=== PATIENT | female | born 1940 | race African-American/Black ===

== ENCOUNTER → 2017-10-20 | Day surgery (SDC) | payer MEDICARE ==
[~2017-10-20] MED LIST: AMLODIPINE BESY10 MG; AMLODIPINE BESY10 MG PO; ASPIR 8181 MG PO; ASPIRIN81 M1; ATENOLOL50 MG PO; BOTULINUM TOXIN TYPE A 100 UNIT VIAL IM ONE; CLOPIDOGREL75 MG PO; COUMADIN2.5 MG PO; COUMADIN3 MG PO; COUMADIN5 MG PO; CRESTOR10 MG PO; FENTANYL CITRATE/PF 100MCG/2 ML INJ ONE; HYDRALAZINE HCL25 MG PO; HYDRALAZINE HCL50 MG; LIDOCAINE HCL 2% LOCAL INJ 5 ML SDV VIAL INJ ONE; LINZESS PO; LISINOPRIL10 MG PO; LOSARTAN POTAS100 MG PO; LOSARTAN POTASS50 MG; METOPROLOL TART50 MG; METOPROLOL TART50 MG PO; NITROGLYCERIN0.4 MG SL; NITROSTAT0.4 MG; OMEPRAZOLE40 MG; OMEPRAZOLE40 MG PO; PLAVIX75 MG PO; PRAVASTATIN SOD40 MG; PRAVASTATIN SOD40 MG PO; PROPOFOL IV EMULSION 10 MG/ML 20 ML VIAL ONE; RENAGEL800 MG; RENVELA800 MG; SENSIPAR60 MG PO; SENSIPAR90 MG; SODIUM CHLORIDE 0.9% 500ML 500 ML ONE; TUMS200 MG PO; WELCHOL625 MG
[2017-10-20 09:47] LABS: BASOPHILS % 0.7 % (0.0-1.0); EOSINOPHILS # (AUTO) 0.1 (0.0-0.4); EOSINOPHILS % 0.9 % (0.0-6.0); HEMATOCRIT 32.6 % (34.2-44.1); HEMOGLOBIN 10.4 g/dL (12.0-16.0); LYMPHOCYTES # (AUTO) 0.9 (1.0-3.2); LYMPHOCYTES % 15.9 % (18.0-39.1); MEAN CORPUSCULAR HEMOGLOBIN 29.5 pg (28-32); MEAN CORPUSCULAR HGB CONC 31.9 g/dL (31-35); MEAN CORPUSCULAR VOLUME 92.6 fL (81-99); MONOCYTES % 17.6 % (4.4-11.3); NEUTROPHILS # (AUTO) 3.6 (2.1-6.9); NEUTROPHILS % 64.5 % (38.7-80.0); PLATELET COUNT 191 x10e3/uL (140-360); RED BLOOD COUNT 3.52 x10e6/uL (3.6-5.1); RED CELL DISTRIBUTION WIDTH 15.7 % (11.7-14.4)
[2017-10-20 10:01] LABS: CALCIUM 9.7 mg/dL (8.4-10.2); CREATININE, SERUM 6.28 mg/dL (0.57-1.11)
[2017-10-20 10:37] LABS: INR 1.06; PROTHROMBIN TIME 14.3 seconds (11.9-14.5)
== END | disposition home or self-care (01) ==
LOC: OR 09:04
PROVIDERS: ATTEND Internal Medicine Gastroenterology
DX: D64.9 Anemia, unspecified (principal); D12.2 Benign neoplasm of ascending colon; D12.3 Benign neoplasm of transverse colon; K29.70 Gastritis, unspecified, without bleeding; K22.10 Ulcer of esophagus without bleeding; K31.84 Gastroparesis; K21.9 Gastro-esophageal reflux disease without esophagitis; K44.9 Diaphragmatic hernia without obstruction or gangrene; K57.30 Diverticulosis of large intestine without perforation or abscess without bleeding; K58.9 Irritable bowel syndrome, unspecified; K64.8 Other hemorrhoids; M32.9 Systemic lupus erythematosus, unspecified; E73.9 Lactose intolerance, unspecified; I25.810 Atherosclerosis of coronary artery bypass graft(s) without angina pectoris; I48.91 Unspecified atrial fibrillation; I12.0 Hypertensive chronic kidney disease with stage 5 chronic kidney disease or end stage renal disease; N18.6 End stage renal disease; E78.5 Hyperlipidemia, unspecified; M19.90 Unspecified osteoarthritis, unspecified site; Z01.810 Encounter for preprocedural cardiovascular examination; Z79.01 Long term (current) use of anticoagulants; Z99.2 Dependence on renal dialysis; Z95.1 Presence of aortocoronary bypass graft; Z87.01 Personal history of pneumonia (recurrent)
CPT/HCPCS: 36415; 43236; 43239; 45380; 45385; 80048; 85025; 85610; 85730; 88305; 88312; 93005; J0587; J2001; J7040; 45384

== ENCOUNTER → 2018-03-29 | Outpatient (CLI) | payer MEDICARE ==
[~2018-03-29] MED LIST changes: -BOTULINUM TOXIN TYPE A 100 UNIT VIAL IM ONE; -FENTANYL CITRATE/PF 100MCG/2 ML INJ ONE; -LIDOCAINE HCL 2% LOCAL INJ 5 ML SDV VIAL INJ ONE; -PROPOFOL IV EMULSION 10 MG/ML 20 ML VIAL ONE; -SODIUM CHLORIDE 0.9% 500ML 500 ML ONE
--- NOTE | 2018-03-29 12:51 | Diagnostic Imaging Report ---
Examination: MRI of the Lumbar Spine without Contrast History: Back pain and right leg pain Comparison studies: None Technique: Sagittal T1, T2 and IR, axial T2 with and without fat sat and axial spin density oblique Intravenous contrast: None Findings: Images are degraded by patient motion. Number of lumbar vertebral bodies: 5 . Alignment: Mild rightward curvature of the thoracolumbar spine centered at T12-L1. Soft tissues: Multiple small T2 hyperintense renal cysts bilaterally. Small right pleural effusion. Paraspinal muscles: No signal abnormalities. Well-preserved. No atrophic changes . Lower thoracic cord: Normal in size and signal. The tip of the conus is at T12-L1. Cauda equina:No masses. No arachnoiditis . Vertebrae: Mild diffuse heterogeneity of the bone marrow. Large Schmorl's nodes are seen at the superior L1 and superior and inferior L2 vertebral bodies. No fractures, infection or neoplasm. Degenerative changes: L1-L2 No abnormalities. L2-L3: No abnormalities. L3-L4: Mild diffuse bulge and mild bilateral facet arthropathy result in mild bilateral neural foraminal narrowing. No canal stenosis. L4-L5: Diffuse disc bulge and moderate bilateral facet arthropathy result in moderate right and mild left foraminal stenosis. No canal stenosis. L5-S1: Asymmetric to the right disc bulge and severe right and mild left facet arthropathy result in mild canal stenosis and severe right and moderate left foraminal stenosis with impingement of the right L5 nerve root. Partially visualized sacrum: No abnormalities. IMPRESSION: Limited exam due to patient motion. 1. Degenerative changes L3-L4 through L5-S1 with mild canal stenosis and severe right and moderate left degenerative foraminal stenosis at L5-S1, with impingement of the right L5 nerve root. 2. Mild rightward curvature of the thoracolumbar spine centered at T12-L1, with degenerative changes related to curvature. 3. Large Schmorl's nodes at the L1 and L2 vertebral bodies. This preliminary report was completed by the neuroradiology fellow Dr. Chauncey Bush. The images and preliminary report were reviewed and signed by Dr. Angie Baer, neuroradiology faculty, on 03/29/2018 at 2146 hours. Signed by: Dr. Angie Baer M.D. on 03/29/2018 9:46 PM
== END | disposition home or self-care (01) ==
LOC: MRI 09:26
PROVIDERS: ATTEND Specialist
DX: M47.816 Spondylosis without myelopathy or radiculopathy, lumbar region (principal); M47.897 Other spondylosis, lumbosacral region; M48.05 Spinal stenosis, thoracolumbar region
CPT/HCPCS: 72148

== ENCOUNTER → 2018-09-08 | Outpatient (CLI) | payer MEDICARE ==
--- NOTE | 2018-09-08 09:23 | Diagnostic Imaging Report ---
PROCEDURE: Frontal and lateral views of the chest. COMPARISON: Patients [facility], , CHEST 2 VIEWS, 02/07/2016, 11:41. INDICATIONS: COUGH, FEVER FINDINGS: Lines/tubes: None. Lungs: The lungs are well inflated and clear. No evidence of lobar consolidation. Mild interstitial opacities most pronounced in the upper lung zones. Mild patchy bibasilar opacities. Pleura: There is no pleural effusion or pneumothorax. Heart and mediastinum: The cardiomediastinal silhouette is unchanged. Prominence of the bilateral madisyn. Status post CABG. Bones: No acute bony abnormality. Status post median sternotomy. IMPRESSION: Upper lobe predominant interstitial opacities could reflect interstitial edema, although infection can have a similar appearance. Follow-up chest radiograph is suggested. Patchy bibasilar opacities, likely atelectasis. Prominence of the bilateral madisyn, suggestive of pulmonary arterial hypertension. Dictated by: BRIA DUBON M.D. on 09/08/2018 at 9:33 Electronically approved by: BRIA DUBON M.D. on 09/08/2018 at 9:33
== END ==
LOC: RAD 08:47
PROVIDERS: ATTEND Family Medicine
DX: R05 Cough (principal)
CPT/HCPCS: 71046

== ENCOUNTER 2020-04-05 15:13 | Inpatient (IN) | payer MEDICARE, OTHER ==
[~2020-04-05] VITALS: Ht 167.6 cm; Wt 54.4 kg
[2020-04-05] MEDS ORDERED: HYDROCODONE/APAP 5MG-325MG TAB PO ONE (16:00)
--- NOTE | 2020-04-05 16:06 | Emergency Department Note ---
History of Present Illnes History of Present Illness Chief Complaint: COVID PUI History of Present Illness This is a 79 year old female HERE FOR PROGRESSIVE SHORTNESS OF BREATH, COUGH, AND FEVER, ACHY ALL OVER. STATES IS IN [facility] SINCE WEDNESDAY MORNING. Historian: Patient Arrival Mode: Car Molded Goods Controls Operator Required: No Onset (how long ago): day(s) (2) Radiation: Reports non-radiation Severity: moderate Onset quality: gradual Timing of current episode: constant Progression: waxing and waning Chronicity: new Context: Reports recent illness Relieving factors: none Exacerbating factors: none Associated symptoms: Reports denies other symptoms Treatments prior to arrival: none Past Medical/Family History Physician Review I have reviewed the patient's past medical and family history. Any updates have been documented here. Past Medical History Recent Fever: Yes Clinical Suspicion of Infectio: Yes New/Unexplained Change in Ment: No Past Medical History: Hypertension, CHF, Chronic Kidney Disease Other Medical History: WATCHMAN Other Surgery: CERVICAL, CLIFTON CATARACTS WATCHMAN Social History Smoking Cessation: Never Smoker Counseling Performed: No Alcohol Use: None Any Illegal Drug Use: No TB Exposure/Symptoms: No Physically hurt or threatened: No Family History Family history of heart diseas: No Other Last Tetanus: UNK Review of Systems Review of Systems Constitutional: Reports as per HPI, Reports chills, Reports fever, Reports malaise, Reports weakness EENTM: Reports no symptoms Cardiovascular: Reports no symptoms Respiratory: Reports as per HPI, Reports cough, Reports dyspnea Gastrointestinal: Reports no symptoms Genitourinary: Reports no symptoms Musculoskeletal: Reports no symptoms Integumentary: Reports no symptoms Neurological: Reports no symptoms Psychological: Reports no symptoms Endocrine: Reports no symptoms Hematological/Lymphatic: Reports no symptoms Physical Exam Related Data Allergies: Coded Allergies: Penicillins (Verified Allergy, Severe, RASH, 11/14/12) Sulfa (Sulfonamide Antibiotics) (Verified Allergy, Severe, RASH, 11/14/12) iodine (Verified Allergy, Severe, RASH, 11/14/12) red dye (Verified Allergy, RASH, 10/20/15) Uncoded Allergies: RED DYES AND RED FOODS (Allergy, Severe, RASH, 11/14/12) Triage Vital Signs Vital Signs Date Time Temp Pulse Resp B/P (MAP) Pulse Ox O2 Delivery O2 Flow Rate FiO2 04/05/20 15:40 98.3 76 24 117/89 97 Vital signs reviewed: Yes Physical Exam CONSTITUTIONAL Constitutional: Present well-developed, Present well-nourished HENT HENT: Present normocephalic, Present atraumatic, Present oropharynx cl ear/moist, Present nose normal HENT L/R: Present left ext ear normal, Present right ext ear normal EYES Eyes: Reports PERRL, Reports conjunctivae normal NECK Neck: Present ROM normal PULMONARY Pulmonary: Present effort normal, Present other (MILD DECR BS'S THROUGHOUT); Absent rales, Absent rhonchi CARDIOVASCULAR Cardiovascular: Present regular rhythm, Present heart sounds normal, Present capillary refill normal, Present normal rate GASTROINTESTINAL Abdominal: Present soft, Present nontender, Present bowel sounds normal GENITOURINARY Genitourinary: Present exam deferred SKIN Skin: Present warm, Present dry MUSCULOSKELETAL Musculoskeletal: Present ROM normal NEUROLOGICAL Neurological: Present alert, Present oriented x 3, Present no gross motor or sensory deficits PSYCHOLOGICAL Psychological: Present mood/affect normal, Present judgement normal Assessment & Plan Medical Decision Making MDM PT SCHEDULED TO GET HD TOMORROW, LIKELY COVID, IN HOSPITAL WITH COVID - O2 SAT NORMAL LUNGS UNREMARKABLE NO RALES - WILL DO COVID SWAB, DC HOME F/U PCP, F/U HD TOMORROW SCHEDULED Reassessment Reassessment DC HOME, F/U HD TOMORROW Assessment & Plan Final Impression: (1) Viral syndrome Depart Disposition: HOME, SELF-CARE Last Vital Signs Date Time Temp Pulse Resp B/P (MAP) Pulse Ox O2 Delivery O2 Flow Rate FiO2 04/05/20 15:40 98.3 76 24 117/89 97 Home Meds Reported Medications Warfarin Sodium* (COUMADIN*) 3 Mg Tablet, 3 MG PO DAILY, #7 TAB 10/23/15 [Linzess] No Conflict Check, 290 MCG PO DAILY PRN for CONSTIPATION TAKE EVERY OTHER DAY NOT DAILY 10/20/15 Cinacalcet Hcl (SENSIPAR) 60 Mg Tablet, 60 MG PO 10/15/15 Metoprolol Tartrate (METOPROLOL TARTRATE) 50 Mg Tablet, 50 MG PO BID, TAB 10/15/15 Amlodipine Besylate (AMLODIPINE BESYLATE) 10 Mg Tablet, 10 MG PO BID, #30 TAB 10/15/15 Losartan Potassium (LOSARTAN POTASSIUM) 100 Mg Tablet, 100 MG PO DAILY, TAB 10/15/15 Hydralazine Hcl (HYDRALAZINE HCL) 25 Mg Tab, 50 MG PO QID, TAB 10/15/15 Omeprazole (OMEPRAZOLE) 40 Mg Capsule.dr, 40 MG PO BID 10/15/15 Pravastatin Sodium (PRAVASTATIN SODIUM) 40 Mg Tablet, 40 MG PO HS 10/15/15 Warfarin Sodium (COUMADIN) 5 Mg Tablet, 5 MG PO 1700, #7 TAB 3 DAYS 10/10/15 Warfarin Sodium (COUMADIN) 2.5 Mg Tablet, 2.5 MG PO 1700, #7 TAB 4 DAYS 10/10/15 Nitroglycerin (NITROSTAT) 0.4 Mg Tab.subl, 0.4 MG PRN ONLY ON HAND FOR EMERGENCY/PT. HAS NOT NEEDED TO TAKE THIS MED. 11/21/12 Medications in the ED Acetaminophen/ Hydrocodone Bitart 1 ea ONCE ONCE PO ; Start 04/05/20 at 16:00; Stop 04/05/20 at 16:01; Status UNDARSHAN ERICKSON MD Apr 05, 2020 16:06
[2020-04-05] MEDS ORDERED: CEFTRIAXONE SOD 1 GM/NS 50 ML 50 ML IV ONE (17:30)
--- NOTE | 2020-04-05 17:40 | NUR ---
Lab called to inform that patient's blood work hemolyzed, advised them to send a morning news producer to recollect.
[2020-04-05] MEDS ORDERED: ONDANSETRON HCL INJ 2MG/ML 2ML 2 MG/ML VIAL IV STA (17:43)
[2020-04-05] MEDS ORDERED: AZITHROMYCIN 500MG/NS 250 ML 250 ML IV ONE (18:00)
[2020-04-05 18:25] LABS: BASOPHILS % 0.3 % (0.0-1.0); EOSINOPHILS % 0.5 % (0.0-6.0); HEMATOCRIT 35.5 % (34.2-44.1); LYMPHOCYTES # (AUTO) 0.4 (1.0-3.2); LYMPHOCYTES % 7.1 % (18.0-39.1); MEAN CORPUSCULAR VOLUME 87.2 fL (81-99); MONOCYTES # (AUTO) 0.2 (0.2-0.8); MONOCYTES % 2.7 % (4.4-11.3); NEUTROPHILS # (AUTO) 5.3 (2.1-6.9); NEUTROPHILS % 87.9 % (38.7-80.0); PLATELET COUNT 104 x10e3/uL (140-360); RED BLOOD COUNT 4.07 x10e6/uL (3.6-5.1); RED CELL DISTRIBUTION WIDTH 15.6 % (11.7-14.4)
[2020-04-05 18:33] LABS: INR 1.15; PROTHROMBIN TIME 15.4 seconds (11.9-14.5)
[2020-04-05 18:34] LABS: PARTIAL THROMBOPLASTIN TIME 49.6 seconds (23.8-35.5)
--- NOTE | 2020-04-05 18:39 | Emergency Department Note ---
History of Present Illnes History of Present Illness Chief Complaint: COVID PUI History of Present Illness This is a 79 year old female . Historian: Patient Arrival Mode: Car Environmental Engineer Scientist Required: No Onset (how long ago): day(s) (2) Radiation: Reports non-radiation Severity: moderate Onset quality: gradual Timing of current episode: constant Progression: waxing and waning Chronicity: new Context: Reports recent illness Relieving factors: none Exacerbating factors: none Associated symptoms: Reports denies other symptoms Treatments prior to arrival: none (DARSHAN GONZALEZ MD) Past Medical/Family History Physician Review I have reviewed the patient's past medical and family history. Any updates have been documented here. (DARSHAN GONZALEZ MD) Past Medical History Recent Fever: Yes Clinical Suspicion of Infectio: Yes New/Unexplained Change in Ment: No Past Medical History: Hypertension, CHF, Chronic Kidney Disease, Lupus Other Medical History: WATCHMAN Past Surgical History: CABG Other Surgery: CERVICAL, CLIFTON CATARACTS WATCHMAN (DARSHAN GONZALEZ MD) Social History Smoking Cessation: Never Smoker Counseling Performed: No Alcohol Use: None Any Illegal Drug Use: No TB Exposure/Symptoms: No Physically hurt or threatened: No (DARSHAN GONZALEZ MD) Family History Family history of heart diseas: No (DARSHAN GONZALEZ MD) Other Last Tetanus: UNK Any Pre-Existing Lines (PICC,: Yes (DIAYLSIS FISTULA ) Is patient up to date on immun: Yes Last Flu: UTD Last Pneumovax: UTD (DARSHAN GONZALEZ MD) Review of Systems Review of Systems Constitutional: Reports as per HPI, Reports chills, Reports fever, Reports malaise, Reports weakness EENTM: Reports no symptoms Cardiovascular: Reports no symptoms Respiratory: Reports as per HPI, Reports cough, Reports dyspnea Gastrointestinal: Reports no symptoms Genitourinary: Reports no symptoms Musculoskeletal: Reports no symptoms Integumentary: Reports no symptoms Neurological: Reports no symptoms Psychological: Reports no symptoms Endocrine: Reports no symptoms Hematological/Lymphatic: Reports no symptoms (DARSHAN GONZALEZ MD) Physical Exam Related Data Allergies: Coded Allergies: Penicillins (Verified Allergy, Severe, RASH, 11/14/12) Sulfa (Sulfonamide Antibiotics) (Verified Allergy, Severe, RASH, 11/14/12) iodine (Verified Allergy, Severe, RASH, 11/14/12) red dye (Verified Allergy, Unknown, RASH, 04/05/20) Uncoded Allergies: RED DYES AND RED FOODS (Allergy, Severe, RASH, 11/14/12) Triage Vital Signs Vital Signs Date Time Temp Pulse Resp B/P (MAP) Pulse Ox O2 Delivery O2 Flow Rate FiO2 04/05/20 15:40 98.3 76 24 117/89 97 Vital signs reviewed: Yes (DARSHAN GONZALEZ MD) Physical Exam CONSTITUTIONAL Constitutional: Present well-developed, Present well-nourished HENT HENT: Present normocephalic, Present atraumatic, Present oropharynx clear/moist, Present nose normal HENT L/R: Present left ext ear normal, Present right ext ear normal EYES Eyes: Reports PERRL, Reports conjunctivae normal NECK Neck: Present ROM normal PULMONARY Pulmonary: Present effort normal, Present other (MILD DECR BS'S THROUGHOUT); Absent rales, Absent rhonchi CARDIOVASCULAR Cardiovascular: Present regular rhythm, Present heart sounds normal, Present capillary refill normal, Present normal rate GASTROINTESTINAL Abdominal: Present soft, Present nontender, Present bowel sounds normal GENITOURINARY Genitourinary: Present exam deferred SKIN Skin: Present warm, Present dry MUSCULOSKELETAL Musculoskeletal: Present ROM normal NEUROLOGICAL Neurological: Present alert, Present oriented x 3, Present no gross motor or sensory deficits PSYCHOLOGICAL Psychological: Present mood/affect normal, Present judgement normal (DARSHAN GONZALEZ MD) Results Laboratory Result Diagram: 04/05/20 1813 Laboratory Laboratory Tests Test 04/05/20 18:13 04/05/20 16:05 White Blood Count 6.02 x10e3/uL (4.8-10.8) Red Blood Count 4.07 x10e6/uL (3.6-5.1) Hemoglobin 11.0 g/dL (12.0-16.0) Hematocrit 35.5 % (34.2-44.1) Mean Corpuscular Volume 87.2 fL (81-99) Mean Corpuscular Hemoglobin 27.0 pg (28-32) Mean Corpuscular Hemoglobin Concent 31.0 g/dL (31-35) Red Cell Distribution Width 15.6 % (11.7-14.4) Platelet Count 104 x10e3/uL (140-360) Neutrophils (%) (Auto) 87.9 % (38.7-80.0) Lymphocytes (%) (Auto) 7.1 % (18.0-39.1) Monocytes (%) (Auto) 2.7 % (4.4-11.3) Eosinophils (%) (Auto) 0.5 % (0.0-6.0) Basophils (%) (Auto) 0.3 % (0.0-1.0) Neutrophils # (Auto) 5.3 (2.1-6.9) Lymphocytes # (Auto) 0.4 (1.0-3.2) Monocytes # (Auto) 0.2 (0.2-0.8) Eosinophils # (Auto) 0.0 (0.0-0.4) Basophils # (Auto) 0.0 (0.0-0.1) Absolute Immature Granulocyte (auto 0.09 x10e3/uL (0-0.1) Lab results reviewed: Yes (DARSHAN GONZALEZ MD) Lab results reviewed: Yes (ALDO MAURO DO) Imaging Imaging results reviewed: Yes (DARSHAN GONZALEZ MD) Imaging results reviewed: Yes (ALDO MAURO DO) Procedures 12 Lead ECG Interpretation ECG Interpretation : ECG: ECG 1 Environmental Engineer Scientist: Interpreted by ED physician Date: Apr 05, 2020 Time: 17:12 Rhythm: atrial fibrillation QRS axis: left ST segments normal: Yes T waves normal: Yes Clinical Impression: abnormal ECG (DARSHAN GONZALEZ MD) Assessment & Plan Medical Decision Making MDM check CBC, CHEM'S, ECG, CARDIAC ENZYMES, BNP, BLOOD CX'S, CXR, COVID SWAB - R/O STEMI/NSTEMI, PNEUMONIA, COVID19, ELECTROLYTE ABNL, HYPERKALEMIA, VOLUME OVERLOAD, CHF (DARSHAN GONZALEZ MD) Reassessment Reassessment SPOKE WITH DR NGUYỄN FOR ADMISSION, DR BELL, DR CALIXTO GROUP FOR HD (DARSHAN GONZALEZ MD) Assessment & Plan Final Impression: (1) Pneumonia (2) Atrial fibrillation (3) ESRD (end stage renal disease) (4) Viral syndrome (5) Thrombocytopenia (DARSHAN GONZALEZ MD) Final Impression: (1) Viral syndrome (2) Thrombocytopenia (3) Atrial fibrillation (4) ESRD (end stage renal disease) (5) Pneumonia (6) COVID-19 virus detected (ALDO MAURO DO) Depart Disposition: ADMITTED Last Vital Signs Date Time Temp Pulse Resp B/P (MAP) Pulse Ox O2 Delivery O2 Flow Rate FiO2 04/05/20 17:24 81 24 121/61 100 04/05/20 15:40 98.3 (DARSHAN GONZALEZ MD) Home Meds Reported Medications Warfarin Sodium* (COUMADIN*) 3 Mg Tablet, 3 MG PO DAILY, #7 TAB 10/23/15 [Linzess] No Conflict Check, 290 MCG PO DAILY PRN for CONSTIPATION TAKE EVERY OTHER DAY NOT DAILY 10/20/15 Cinacalcet Hcl (SENSIPAR) 60 Mg Tablet, 60 MG PO 10/15/15 Metoprolol Tartrate (METOPROLOL TARTRATE) 50 Mg Tablet, 50 MG PO BID, TAB 10/15/15 Amlodipine Besylate (AMLODIPINE BESYLATE) 10 Mg Tablet, 10 MG PO BID, #30 TAB 10/15/15 Losartan Potassium (LOSARTAN POTASSIUM) 100 Mg Tablet, 100 MG PO DAILY, TAB 10/15/15 Hydralazine Hcl (HYDRALAZINE HCL) 25 Mg Tab, 50 MG PO QID, TAB 10/15/15 Omeprazole (OMEPRAZOLE) 40 Mg Capsule.dr, 40 MG PO BID 10/15/15 Pravastatin Sodium (PRAVASTATIN SODIUM) 40 Mg Tablet, 40 MG PO HS 10/15/15 Warfarin Sodium (COUMADIN) 5 Mg Tablet, 5 MG PO 1700, #7 TAB 3 DAYS 10/10/15 Warfarin Sodium (COUMADIN) 2.5 Mg Tablet, 2.5 MG PO 1700, #7 TAB 4 DAYS 10/10/15 Nitroglycerin (NITROSTAT) 0.4 Mg Tab.subl, 0.4 MG PRN ONLY ON HAND FOR EMERGENCY/PT. HAS NOT NEEDED TO TAKE THIS MED. 11/21/12 Medications in the ED Acetaminophen/ Hydrocodone Bitart 1 ea ONCE ONCE PO Last administered on 04/05/20at 16:14; Admin Dose 1 EA; Start 04/05/20 at 16:00; Stop 04/05/20 at 16:03; Status DC Ceftriaxone Sodium 50 ml @ 100 mls/hr ONCE ONCE IV Last administered on 04/05/20at 17:15; Admin Dose 100 MLS/HR; Start 04/05/20 at 17:30; Stop 04/05/20 at 17:59; Status DC Azithromycin 250 ml @ 200 mls/hr ONCE ONCE IV Last administered on 04/05/20at 17:40; Admin Dose 200 MLS/HR; Start 04/05/20 at 18:00; Stop 04/05/20 at 19:14 Ondansetron HCl 4 mg NOW STAT IV Last administered on 04/05/20at 17:49; Admin Dose 4 MG; Start 04/05/20 at 17:43; Stop 04/05/20 at 17:46; Status DC (DARSHAN GONZALEZ MD) DARSHAN GONZALEZ MD Apr 05, 2020 18:39 ALDO MAURO DO Apr 07, 2020 01:56
[2020-04-05 18:40] LABS: ALBUMIN 3.2 g/dL (3.5-5.0); ALBUMIN/GLOBULIN RATIO 0.9 (0.8-2.0); ANION GAP 26.3 mmol/L (8-16); CREATININE, SERUM 10.6 mg/dL (0.57-1.11); POTASSIUM 4.3 mmol/L (3.5-5.1)
[2020-04-05 18:46] LABS: CREATINE KINASE MB 2.4 ng/mL (0-5.0)
--- NOTE | 2020-04-05 18:52 | NUR ---
report given to aWlker CHAPARRO
[2020-04-05] MEDS ORDERED: ALBUTEROL SULFATE HFA 8GM INHALATION AEROSOL INH PRN (19:00)
[2020-04-05] MEDS ORDERED: ONDANSETRON HCL INJ 2MG/ML 2ML 2 MG/ML VIAL IV PRN (19:00)
[2020-04-05] MEDS ORDERED: NITROGLYCERIN 0.4 MG SUBL SL PRN (19:00)
--- NOTE | 2020-04-05 19:14 | NUR ---
[facility] dialysis called to set up dialysis for tonight per dr kaufman request.
--- NOTE | 2020-04-05 19:49 | Diagnostic Imaging Report ---
EXAMINATION: CHEST SINGLE (PORTABLE) INDICATION: ESRD WITH COVID SX'S, SOB COMPARISON: Chest x-ray dated 09/08/2018. FINDINGS: AP view TUBES and LINES: None. LUNGS/PLEURA: Lungs are well inflated. There are bilateral patchy opacities could represent multifocal pneumonia, ARDS or edema.. There is no pleural effusion or pneumothorax. HEART AND MEDIASTINUM: Cardiac size is severely enlarged. BONES AND SOFT TISSUES: Midline sternotomy wires seen. Cervical spine hardware. No acute osseous lesion. Soft tissues are unremarkable. UPPER ABDOMEN: No free air under the diaphragm. IMPRESSION: Bilateral patchy opacities could represent multifocal pneumonia, ARDS or edema. Marked cardiomegaly. Signed by: Jesús Cooper MD on 04/05/2020 7:46 PM
[2020-04-05 20:46] LABS: BAND NEUTROPHILS % (MANUAL) 3 %; BLAST CELLS % MANUAL 2; LYMPHOCYTES % (MANUAL) 4 % (19-48); METAMYELOCYTES % (MANUAL) 1 % (0-0); MONOCYTES % (MANUAL) 5 % (3.4-9.0); MYELOCYTES % (MANUAL) 2 % (0-0); NEUTROPHILS % (MANUAL) 82 % (40-74)
[2020-04-05 20:49] LABS: PLATELET ESTIMATE SLIGHTLY DECREASED; PLATELET MORPHOLOGY COMMENT NORMAL; RBC MORPHOLOGY COMMENT NORMAL
[2020-04-05 20:50] LABS: ANISOCYTOSIS MODERATE
[2020-04-05] MEDS ORDERED: SODIUM CHLORIDE 0.9% 1000ML 2,000 ML ONE (21:25)
[2020-04-06] VITALS (10 sets, daily range): BP systolic 106–146; BP diastolic 49–68
[2020-04-06] MEDS: ACETAMINOPHEN 325 MG TAB PO PRN ×3 (06:00→23:43)
[2020-04-06 06:22] LABS: BASOPHILS % 0.3 % (0.0-1.0); EOSINOPHILS % 0.3 % (0.0-6.0); HEMATOCRIT 35.8 % (34.2-44.1); HEMOGLOBIN 11.2 g/dL (12.0-16.0); LYMPHOCYTES # (AUTO) 0.4 (1.0-3.2); LYMPHOCYTES % 6.3 % (18.0-39.1); MEAN CORPUSCULAR HEMOGLOBIN 27.3 pg (28-32); MEAN CORPUSCULAR HGB CONC 31.3 g/dL (31-35); MEAN CORPUSCULAR VOLUME 87.3 fL (81-99); MONOCYTES # (AUTO) 0.3 (0.2-0.8); MONOCYTES % 3.8 % (4.4-11.3); NEUTROPHILS % 88.1 % (38.7-80.0); PLATELET COUNT 129 x10e3/uL (140-360); RED CELL DISTRIBUTION WIDTH 15.9 % (11.7-14.4)
[2020-04-06 06:42] LABS: ALBUMIN 3.2 g/dL (3.5-5.0); ALBUMIN/GLOBULIN RATIO 0.8 (0.8-2.0); ANION GAP 25.6 mmol/L (8-16); CHOL/HDL RATIO 4.2 (3.0-3.6); CREATININE, SERUM 8.08 mg/dL (0.57-1.11); POTASSIUM 4.6 mmol/L (3.5-5.1)
--- NOTE | 2020-04-06 06:51 | NUR ---
Consults called per orders: Dr. Bardales called spoke with Michelle Pineda notified spoke with Malu Payan notified spoke with David Rodriguez notified left message on machine [phone]
--- NOTE | 2020-04-06 07:11 | NUR ---
Lab called with low blood sugar. Pt given juice, pudding, and crackers will recheck blood sugar
[2020-04-06 07:25] LABS: CREATINE KINASE MB 4.6 ng/mL (0-5.0)
[2020-04-06] MEDS ORDERED: SODIUM CHLORIDE 0.9% 1000ML 2,000 ML ONE (07:30)
--- NOTE | 2020-04-06 07:56 | NUR ---
ASSUMED CARE. AAOX3. ACYANOTIC. RESTING IN BED. NO DISTRESS NOTED. BED LOW AND LOCKED. CALL LIGHT IN REACH. SIDE RAILS UP X2.
--- NOTE | 2020-04-06 08:04 | NUR ---
DIALYSIS NURSE CURRENTLY PRESENT AT BEDSIDE PREPARING TO INITIATE DIALYSIS TREATMENT. NO DISTRESS NOTED. IV MEDICATIONS DUE FOR RESCHEDULING DUE TO DIALYSIS TREATMENT.
[2020-04-06] MEDS ORDERED: CEFTRIAXONE SOD 1 GM/NS 50 ML 50 ML IV SCH (09:00)
[2020-04-06] MEDS: METOPROLOL TARTRATE 50 MG TAB PO SCH ×2 (09:00→17:28)
[2020-04-06] MEDS ORDERED: AZITHROMYCIN 500MG/NS 250 ML 250 ML IV SCH (10:00)
--- NOTE | 2020-04-06 11:34 | Consultation ---
DATE OF CONSULTATION: Pulmonary Consultation Patient of Dr. Molina Addison and Dr. Pineda. HISTORY OF PRESENT ILLNESS: Charming, but unfortunate 79-year-old woman with a history of end-stage renal disease, on home dialysis for 18 years, admitted with 6 days of fever, cough, and progressive myalgias. PAST MEDICAL AND SURGICAL HISTORY: Going through record, she has a history of lupus, Watchman device in the past, cataract surgery, atrial fibrillation, coronary artery bypass surgery. 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 ALLERGIES: SULFA, IODINE, AND RED DYE. MEDICATIONS: 1. Warfarin. 2. Cinacalcet. 3. Metoprolol. 4. Amlodipine. 5. Losartan. 6. Apresoline. 7. Prilosec. 8. Nitroglycerin. 9. Pravachol. PHYSICAL EXAMINATION: GENERAL: This is a slight black female, in no acute distress, tolerating dialysis. AV fistula left arm. HEAD: Normocephalic, atraumatic. LUNGS: Clear anteriorly. HEART: Irregular rhythm. ABDOMEN: Nontender. EXTREMITIES: Nonedematous. The patient appears stable despite bilateral infiltrates. O2 saturation said to be 95%. We will double check with arterial blood gases. Continue to monitor carefully. Continue anticoagulation therapy with azithromycin and Rocephin. Thank you for this kind referral. MD GUNJAN Mills/MODL /[id number]
--- NOTE | 2020-04-06 12:10 | Consultation ---
DATE OF CONSULTATION: Cardiology Consultation REQUESTING PHYSICIAN: Dr. Allison. REASON FOR CONSULTATION: Atrial fibrillation. HISTORY OF PRESENT ILLNESS: Ms. Messer is a 79-year-old female, who is well known to our practice, who is reported to have sought emergency care due to COVID-like symptoms of cough and not feeling well. We were consulted to manage her care due to medical history of atrial fibrillation. She also has a past medical history of end-stage renal disease, on hemodialysis Wednesday, Wednesday, and Wednesday. Consultation was conducted with nursing staff. PAST MEDICAL HISTORY: Includes: 1. End-stage renal disease, on dialysis. 2. History of atrial fibrillation. 3. Hypertension. FAMILY HISTORY: Noncontributory. REVIEW OF SYSTEMS: Unable to obtain due to COVID-19 positive. PHYSICAL EXAMINATION: VITAL SIGNS: Temperature 98.2, pulse 70, respiratory rate 19, blood pressure 122/55, and oxygen saturation 93% on room air. CARDIOVASCULAR MEDICATIONS: Metoprolol 50 mg p.o. b.i.d. and nitroglycerin 0.4 mg q.4 hours p.r.n. for chest pain. LABORATORY DATA: WBC 6.85, hemoglobin 11.2, hematocrit 35.8, and platelets 129. Sodium 139, potassium 4.6, BUN 43, creatinine 8.06, and glucose 58. Troponin 0.115, CK-MB 4.6 . LDL 49, HDL 22, triglycerides 105, and total cholesterol 92. Chest x-ray from yesterday with bilateral patchy opacity. This could represent multifocal pneumonia, , or edema. TELEMETRY: Rate controlled atrial fibrillation. IMPRESSION: 1. Atrial fibrillation, rate controlled. 2. End-stage renal disease, on hemodialysis. 3. Hypertension. 4. Viral pneumonia COVID-19. 5. Diastolic congestive heart failure. 6. Pulmonary hypertension. RECOMMENDATIONS: Ms. Messer had a normal stress test in September 2019. No further ischemic evaluation needed at this time. We will repeat an echocardiogram this morning and reassess her heart failure and also known mitral regurgitation. Continue the above medications. Initiate home Coumadin. On admission, INR was noted to be 1.15, was taking 2.5 mg of warfarin at home. We will up titrate the dose. Maintain the patient on telemetry at all times. Infectious Disease managing. Hemodialysis per professional programmer analyst. We will continue to follow this patient very closely. Might need ultrafiltration given elevated BNP of 1255. Thank you for this consultation, Dr. Allison. We will continue to participate in this patient's care. Dictated by Marifer Pearl, REY MD TACHO MendezV/PAMELA /[id number]
[2020-04-06 15:51] LABS: ABG HCO3 29 mmol/L (22-26); ABG PCO2 43 mmHg (35-45); ABG PH 7.43 (7.35-7.45); ABG PO2 64 mmHg (80-105)
[2020-04-06] MEDS: CEFTRIAXONE SOD 1 GM/NS 50 ML 50 ML IV SCH (15:54)
[2020-04-06] MEDS: ENOXAPARIN 30 MG/0.3 ML SYR SC SCH (17:00)
[2020-04-06] MEDS: WARFARIN SOD 2 MG TAB PO SCH (17:00)
[2020-04-06] MEDS: AZITHROMYCIN 500MG/NS 250 ML 250 ML IV SCH (17:27)
--- NOTE | 2020-04-06 20:51 | Consultation ---
DATE OF CONSULTATION: REASON FOR CONSULTATION: COVID-19. HISTORY OF PRESENT ILLNESS: This is a very pleasant 79-year-old female. The patient comes into the emergency room with shortness of breath. The patient has end-stage renal disease. She is on home dialysis. She had 6 days of cough and fatigue, not feeling well. The patient was admitted. The patient, who is currently on Coumadin, metoprolol, amlodipine, and losartan. The patient was admitted, underwent dialysis. She is doing much better actually when I saw her. She states she is feeling better. REVIEW OF SYSTEMS: At the present time is just weak. PAST MEDICAL HISTORY: End-stage renal disease, on dialysis. ALLERGIES: NKA. SOCIAL HISTORY: There is no smoking, drug abuse, or alcohol abuse. FAMILY HISTORY: Otherwise unremarkable. PHYSICAL EXAMINATION: GENERAL: She is alert and oriented. VITAL SIGNS: Afebrile. HEENT: She is not icteric. NECK: Supple. She looks very comfortable on room air. CHEST: Clear anterior. HEART: S1 and S2. No S3, S4, or murmurs. ABDOMEN: Soft. IMPRESSION: 1. Shortness of breath, present on admission, probably fluid overload, clinically doing much better after dialysis. Doubt pneumonia and the patient does have COVID-19, maybe concern pneumonia versus upper respiratory infection. 2. Atrial fibrillation. She is seen by Cardiology and her rate is controlled now. 3. End-stage renal disease, on hemodialysis. 4. History of hypertension. 5. From Infectious Disease point of view, she is currently on ceftriaxone and azithromycin. The patient will be discharged home tomorrow with no antibiotic. She looks clinically good to continue dialysis as ordered. Thank you for asking me to see this patient. MD ROSALBA Alvarez/PAMELA /[id number]
--- NOTE | 2020-04-06 21:06 | Consultation ---
DATE OF CONSULTATION: 04/06/2020 HISTORY OF PRESENT ILLNESS: The patient is known to me, 79-year-old female, underlying history of coronary artery bypass surgery and end-stage renal disease, admitted with shortness of breath and cough, found to have COVID positive. Chest x-ray is highly suggestive of COVID pneumonia. She is scheduled for dialysis. LABORATORY DATA: Show hemoglobin 11.2. Potassium level of 4.6 and blood sugar was low earlier better. BNP level of 1255. ALLERGIES: PENICILLIN, SULFA, AND IODINE. CURRENT MEDICATIONS: On ondansetron p.r.n., albuterol, Atrovent, ceftriaxone, azithromycin, albuterol, Atrovent nebulizer, and warfarin 4 mg p.o. SOCIAL HISTORY: Does not smoke or drink. PAST MEDICAL HISTORY: As above. ASSESSMENT: Underlying COVID pneumonia. PLAN: Hemodialysis ultrafiltration on hemodialysis. No heparin. Please see orders. MD TANNER Ramirez/PAMELA /[id number]
[2020-04-07] VITALS (8 sets, daily range): BP systolic 118–147; BP diastolic 51–80
[2020-04-07 05:37] LABS: BASOPHILS % 0.6 % (0.0-1.0); EOSINOPHILS # (AUTO) 0.1 (0.0-0.4); EOSINOPHILS % 2.4 % (0.0-6.0); HEMATOCRIT 38.4 % (34.2-44.1); HEMOGLOBIN 11.8 g/dL (12.0-16.0); LYMPHOCYTES # (AUTO) 0.5 (1.0-3.2); MEAN CORPUSCULAR HEMOGLOBIN 26.9 pg (28-32); MEAN CORPUSCULAR HGB CONC 30.7 g/dL (31-35); MEAN CORPUSCULAR VOLUME 87.7 fL (81-99); MONOCYTES # (AUTO) 0.3 (0.2-0.8); MONOCYTES % 8.1 % (4.4-11.3); NEUTROPHILS # (AUTO) 2.4 (2.1-6.9); NEUTROPHILS % 70.6 % (38.7-80.0); PLATELET COUNT 125 x10e3/uL (140-360); RED BLOOD COUNT 4.38 x10e6/uL (3.6-5.1); RED CELL DISTRIBUTION WIDTH 15.9 % (11.7-14.4)
--- NOTE | 2020-04-07 07:02 | Diagnostic Imaging Report ---
Examination: Single AP view of the chest. COMPARISON: Portable chest 04/05/2020 INDICATION: Pneumonia IMPRESSION: 1. Lines and Tubes: None 2. No significant interval change in bilateral interstitial and alveolar opacities, likely representing multifocal pneumonia. No pleural effusion. 3. Stable moderate to marked enlargement of the cardiac silhouette. Central venous congestion. 4. No acute bony abnormalities. Signed by: Dr. Trev Reed M.D. on 04/07/2020 6:59 AM
[2020-04-07 07:16] LABS: ALBUMIN 3.1 g/dL (3.5-5.0); ALBUMIN/GLOBULIN RATIO 0.7 (0.8-2.0); ANION GAP 19.6 mmol/L (8-16); CALCIUM 10.3 mg/dL (8.4-10.2); CREATININE, SERUM 5.21 mg/dL (0.57-1.11); POTASSIUM 4.6 mmol/L (3.5-5.1)
[2020-04-07 07:33] LABS: CREATINE KINASE MB 7.5 ng/mL (0-5.0)
--- NOTE | 2020-04-07 07:52 | NUR ---
paged to notify of troponin 1.802. Patient denies chest pain. Tele reading afib with pvc 82
[2020-04-07 08:22] LABS: BAND NEUTROPHILS % (MANUAL) 2 %; LYMPHOCYTES % (MANUAL) 3 % (19-48); METAMYELOCYTES % (MANUAL) 1 % (0-0); MONOCYTES % (MANUAL) 4 % (3.4-9.0); MYELOCYTES % (MANUAL) 2 % (0-0); NEUTROPHILS % (MANUAL) 88 % (40-74)
--- NOTE | 2020-04-07 08:31 | NUR ---
Ryanne Machado NP aware of troponin levels. See orders
[2020-04-07] MEDS: METOPROLOL TARTRATE 50 MG TAB PO SCH ×2 (09:00→16:42)
[2020-04-07] MEDS ORDERED: ASPIRIN 325 MG TAB PO ONE (09:30)
[2020-04-07] MEDS ORDERED: ASPIRIN 81 MG CHEW TAB PO ONE (09:30)
--- NOTE | 2020-04-07 09:48 | Progress Note ---
DATE: Cardiology Progress Note SUBJECTIVE: Nursing reports no new symptoms or complaints, however troponins elevated this morning reported to be 1.802 at 4 o'clock this morning. The patient denies any chest pain or shortness of breath. OBJECTIVE: VITAL SIGNS: Temperature 98.8, pulse 81, respiratory rate 20, blood pressure 147/80, and oxygen saturation 94% on room air. CARDIOVASCULAR MEDICATIONS: Metoprolol 50 mg p.o. b.i.d., Lovenox 30 mg subcu daily, and warfarin 4 mg p.o. daily. LABORATORY DATA: WBC 3.33, hemoglobin 11.8, hematocrit 38.4, and platelets 125. Sodium 139, potassium 4.6, BUN 27, and creatinine 5.21. CK-MB 7.50. Troponin 1.802. Creatine kinase 113. IMAGING DATA: Chest x-ray this morning with no significant interval change in bilateral interstitial and alveolar opacity, stable to moderate marked, enlarged cardiac silhouette with central venous congestion. I have personally reviewed telemetry and it reveals rate controlled atrial fibrillation with occasional PVCs. IMPRESSION: 1. Atrial fibrillation, rate control. 2. End-stage renal disease, on hemodialysis. 3. Hypertension. 4. Viral pneumonia, coronavirus disease-19. 5. Diastolic heart failure. 6. Pulmonary hypertension. 7. Elevated troponin. RECOMMENDATION: Repeat cardiac enzymes at 11 o'clock this morning. The patient had a normal stress test in September of 2019. Recheck INR this morning. Continue the above listed cardiac medications; in addition, add aspirin. Maintain on telemetry at all time. Continue Infectious Disease management and management of COVID-19. 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 Monitor BNP. Initiate low-dose Lasix. We will continue to follow this patient. Dictated by Marifer Pearl NP MD ABDON Mendez/PAMELA /[id number]
[2020-04-07] MEDS: FUROSEMIDE 40 MG TAB PO SCH (10:50)
[2020-04-07 11:31] LABS: INR 0.95; PROTHROMBIN TIME 13.2 seconds (11.9-14.5)
--- NOTE | 2020-04-07 11:37 | NUR ---
Notified Marifer Nettles NP of troponin 1.699 Addendum: 04/07/20 at 1353 by BARRINGTON OLEARY RN andriy segovia
[2020-04-07] MEDS: CEFTRIAXONE SOD 1 GM/NS 50 ML 50 ML IV SCH (16:42)
[2020-04-07] MEDS: ENOXAPARIN 30 MG/0.3 ML SYR SC SCH (16:42)
[2020-04-07] MEDS: WARFARIN SOD 2 MG TAB PO SCH (16:42)
[2020-04-07] MEDS: AZITHROMYCIN 500MG/NS 250 ML 250 ML IV SCH (18:41)
--- NOTE | 2020-04-07 19:15 | NUR ---
Report given to oncoming nurse of patient's status. Resting in bed. No s/s of acute distress noted. Side rails upx2, call light within reach.
[2020-04-08] VITALS: BP 138/53
--- NOTE | 2020-04-08 01:05 | NUR ---
right ac site iv swelling, iv removed with tip intact. Pressure dressing applied. New iv started to right FA 22g x1 attempt.
[2020-04-08 04:00] VITALS: BP 156/74
[2020-04-08 08:00] VITALS: BP 156/74
--- NOTE | 2020-04-08 08:26 | Progress Note ---
DATE: SUBJECTIVE: The patient is a 79-year-old female, who came in with COVID-19 positive. The patient also has seen an elevation in troponin. Currently afebrile and asymptomatic. No chest pain. No shortness of breath. The patient is resting. OBJECTIVE: VITAL SIGNS: Temperature is 97.8, pulse of 68, respirations of 17, blood pressure is 156/74, and pulse oximetry of 95%. HEENT: Normocephalic and atraumatic. Pupils are reactive. CVS: S1 and S2 normal. Regular rate and rhythm. ABDOMEN: Nontender and nondistended. EXTREMITIES: No clubbing. No cyanosis. No edema. LABORATORY DATA: White count of 3.33, hemoglobin of 11.8, hematocrit of 38.4, platelet count of 125, neutrophil count of 88. Chemistries; sodium of 139, potassium of 4.6, BUN of 27, and creatinine of 5.21. Troponin was 1.699, trended down to 1.802 to 1.69. Serology; coronavirus is detected. ASSESSMENT: Ms. Hannah Messer with: 1. Atrial fibrillation, rate controlled. 2. End-stage renal disease. 3. COVID-19 positive viral pneumonia. 4. Hypertension. 5. Pulmonary hypertension. 6. Elevated troponin. PLAN: 1. The patient's troponins are on the lower side secondary to end-stage renal disease and troponin leak. 2. End-stage renal disease. Continue dialysis. 3. COVID-19, stable. The patient was initiated on low-dose Lasix. We will continue to monitor the patient. If okay with everybody, can be discharged today. Further recommendation per clinical course. Molina Addison MD ASJ/MODL /[id number]
[2020-04-08 08:30] VITALS: BP 143/73
[2020-04-08 09:51] LABS: BASOPHILS % 0.7 % (0.0-1.0); EOSINOPHILS # (AUTO) 0.2 (0.0-0.4); EOSINOPHILS % 5.6 % (0.0-6.0); HEMATOCRIT 30.9 % (34.2-44.1); HEMOGLOBIN 9.5 g/dL (12.0-16.0); LYMPHOCYTES # (AUTO) 0.5 (1.0-3.2); MEAN CORPUSCULAR HGB CONC 30.7 g/dL (31-35); MEAN CORPUSCULAR VOLUME 87.8 fL (81-99); MONOCYTES # (AUTO) 0.2 (0.2-0.8); MONOCYTES % 5.9 % (4.4-11.3); NEUTROPHILS % 67.7 % (38.7-80.0); PLATELET COUNT 101 x10e3/uL (140-360); RED BLOOD COUNT 3.52 x10e6/uL (3.6-5.1); RED CELL DISTRIBUTION WIDTH 15.9 % (11.7-14.4)
[2020-04-08 10:07] LABS: ANION GAP 14.2 mmol/L (8-16); CALCIUM 9.3 mg/dL (8.4-10.2); CREATININE, SERUM 6.45 mg/dL (0.57-1.11); POTASSIUM 4.2 mmol/L (3.5-5.1)
[2020-04-08 11:30] VITALS: BP 131/70
--- NOTE | 2020-04-08 13:37 | Progress Note ---
DATE: SUBJECTIVE: Ms. Messer, who is 79-year-old. She is doing very well. REVIEW OF SYSTEMS: HEENT: Negative. PULMONARY: Negative. CARDIAC: Negative. She does have dialysis in the house. PHYSICAL EXAMINATION: GENERAL: She is currently alert, oriented, does not seem to be in acute distress. VITAL SIGNS: Stable, afebrile. HEENT: She is not icteric. NECK: Supple. CHEST: Clear. COR: S1, S2. No murmur. ABDOMEN: Soft. IMPRESSION: 1. Coronavirus disease-19, I think she has upper respiratory infection, clinically stable, could be discharged. 2. End-stage renal disease. She does have home dialysis. From Infectious Disease point of view can be discharged home. No treatment. Follow up in 3 weeks. The patient should be clinically stable 2 weeks from today. Should be cleared, not infectious, if continued to be stable as she is right now. I would recommend against repeating PCR and her condition since is clinically stable. MD ROSALBA Alvarez/MODL /[id number]
[2020-04-08] MEDS: FUROSEMIDE 40 MG TAB PO SCH (15:48)
[2020-04-08] MEDS: METOPROLOL TARTRATE 50 MG TAB PO SCH (15:49)
[2020-04-08 16:11] VITALS: BP 133/78
--- NOTE | 2020-04-08 17:00 | NUR ---
Pt discharge home at this time. Pt had dialysis treatment this morning. 0 s/s of acute distress noted at time of discharge. Breaths even and unlabored on room air. Pt verbalized understanding of all discharge instructions and follow up appointments.
--- NOTE | 2020-04-08 18:14 | Progress Note ---
DATE: 04/08/2020 Cardiology Progress Note SUBJECTIVE: The patient denies chest pain. She is not on supplemental oxygen. OBJECTIVE: VITAL SIGNS: Temperature 97.4 degrees, pulse 72, respiratory rate 20, blood pressure 131/70, oxygen saturation 100% on room air. The patient was not examined. CHRONIC MEDICATIONS: Enoxaparin 30 mg subcu daily, metoprolol tartrate 50 mg p.o. b.i.d., furosemide 40 mg p.o. daily, and warfarin 4 mg p.o. daily. LABORATORY DATA: WBC 2.88, hemoglobin 9.5, hematocrit 30.9, platelets 101,000. Sodium 135, potassium 4.2, chloride 97, CO2 28, BUN 41, and creatinine 6.45. TELEMETRY: Telemetry was personally reviewed and interpreted revealed atrial fibrillation. IMPRESSION: 1. Atrial fibrillation. 2. COVID-19 pneumonia. 3. End-stage renal disease, on hemodialysis. 4. Elevated troponin. 5. Pulmonary hypertension. 6. Hypertension. RECOMMENDATIONS: Elevated troponin noted. The patient had nuclear stress test with normal perfusion September of 2019. Troponin elevation likely secondary to type 2 [place] in the setting of COVID-19 as well as end-stage renal disease. Continue home cardiac medications including warfarin for CVA prophylaxis. Volume management per Nephrology given dialysis. Recommend addition of aspirin. Thank you for this consult. We will continue to follow. Kenna Villavicencio MD ABS/MODL /[id number]
== END 2020-04-08 17:06 | disposition home or self-care (01) | DRG 177 ==
LOC: ER 15:13 → ERHOLD 19:32 → IMCU 21:41 → OBSVTOIN 04-07 12:08
PROVIDERS: ADMIT Internal Medicine; ATTEND Internal Medicine
PROC: 5A1D70Z Performance of Urinary Filtration, Intermittent, Less than 6 Hours Per Day (ICD-10-PCS; principal; 2020-04-07)
DX: U07.1 COVID-19 (principal); J12.89 Other viral pneumonia; N18.6 End stage renal disease; I50.43 Acute on chronic combined systolic (congestive) and diastolic (congestive) heart failure; J96.01 Acute respiratory failure with hypoxia; J15.9 Unspecified bacterial pneumonia; I13.2 Hypertensive heart and chronic kidney disease with heart failure and with stage 5 chronic kidney disease, or end stage renal disease; I48.91 Unspecified atrial fibrillation; Z99.2 Dependence on renal dialysis; Z88.0 Allergy status to penicillin; Z88.2 Allergy status to sulfonamides; I27.20 Pulmonary hypertension, unspecified
CPT/HCPCS: 36415; 36600; 71045; 80048; 80053; 80061; 82550; 82553; 82805; 82948; 83735; 83880; 84484; 85025; 85610; 85730; 86704; 86706; 87040; 87340; 87635; 93005; 93306; 99282; 99284; G0378; J0456; J0696; J1650; J7030

== ENCOUNTER → 2020-08-13 | Day surgery (SDC) | payer MEDICARE, OTHER ==
[2020-08-08 11:09] LABS: BASOPHILS % 0.6 % (0.0-1.0); EOSINOPHILS # (AUTO) 0.1 (0.0-0.4); EOSINOPHILS % 1.8 % (0.0-6.0); HEMATOCRIT 33.9 % (34.2-44.1); HEMOGLOBIN 10.7 g/dL (12.0-16.0); LYMPHOCYTES # (AUTO) 0.8 (1.0-3.2); LYMPHOCYTES % 23.4 % (18.0-39.1); MEAN CORPUSCULAR HEMOGLOBIN 28.3 pg (28-32); MEAN CORPUSCULAR HGB CONC 31.6 g/dL (31-35); MEAN CORPUSCULAR VOLUME 89.7 fL (81-99); MONOCYTES # (AUTO) 0.6 (0.2-0.8); MONOCYTES % 17.4 % (4.4-11.3); NEUTROPHILS # (AUTO) 1.9 (2.1-6.9); NEUTROPHILS % 56.5 % (38.7-80.0); PLATELET COUNT 123 x10e3/uL (140-360); RED BLOOD COUNT 3.78 x10e6/uL (3.6-5.1); RED CELL DISTRIBUTION WIDTH 14.6 % (11.7-14.4)
--- NOTE | 2020-08-12 11:32 | NUR ---
Spoke with Belia in lab following up on cmp results. Per Belia she stated sample had hemolyzed per the notes. Addendum: 08/12/20 at 1137 by Marianne Dahl RN Per Belia she Stated there was a note left stating that Isis Woody spoke with Shawn THOMPSON about redrawing lab on day of procedure and that the cmp sample was hemolyzed.
[2020-08-12 14:18] VITALS: BP 124/50
[~2020-08-13] VITALS: Ht 167.6 cm; Wt 51.3 kg
[2020-08-13] VITALS (9 sets, daily range): BP systolic 115–163; BP diastolic 50–86
[~2020-08-13] MED LIST changes: +ALPRAZOLAM 0.5 MG TAB ONE; +ASPIRIN EC81 MG PO; +CALCITRIOL0.25 MCG PO; +DIALYVITE 800-1 EAC1 PO; +DIPHENHYDRAMINE HCL 25 MG CAP ONE; +FAMOTIDINE 20 MG/2 ML VIAL IV ONE; +FENTANYL CITRATE/PF 100MCG/2 ML INJ ONE; +HEPARIN SOD/SOD CHLORIDE 2,000 ML ONE; +IOPAMIDOL 370 MG/ML 200 ML INFUS..BTL INJ ONE; +LEVOCETIRIZINE D5 MG PO; +LIDOCAINE HCL 2% LOCAL 20 ML VIAL ONE; +METHYLPREDNISOLONE SOD SUCC 125 MG/2ML VIAL ONE; +MIDAZOLAM HCL 2 MG/2 ML VIAL ONE; +SODIUM CHLORIDE 0.9% 1000ML 1,000 ML ONE; +VERAPAMIL HCL 2.5 MG/ML 2 ML VIAL ONE; +VITAMIN D PO
--- NOTE | 2020-08-13 15:06 | Operative Report ---
DATE OF PROCEDURE: 08/13/2020 SURGEON: Miki Rodriguez MD INDICATIONS: Coronary artery disease, angina, and abnormal stress test. PROCEDURES PERFORMED: 1. Left heart catheterization, selective coronary angiography. 2. Conscious sedation, 35 minutes. 3. Deployment of right groin Perclose closure device. COMPLICATIONS: None. BLOOD LOSS: Minimal. RECOMMENDATIONS: Medical therapy. DESCRIPTION OF PROCEDURE: Access was obtained in the right femoral artery. A 6-[place] sheath was placed. Coronary angiography demonstrated 50% left main heavily calcified vessel. Circumflex, diffuse 30% to 50% stenosis. Left anterior descending artery was occluded. Right coronary artery, diffuse 30% to 50% stenosis, heavily calcified. Left internal mammary artery bypass was occluded. No other saphenous vein bypass was identified. Right groin repaired using Perclose closure device. The patient discharged home with recommendations for medical therapy. Miki Rodriguez MD [facility]/MODL /[id number]
--- NOTE | 2020-08-13 16:10 | NUR ---
Pt meets discharge criteria. VS wnl, alert and oriented. Pt and Family Understands discharge instruction. Overall general assess w/o gross outliers. Skin warm, dry, and intact. Right femoral dressing soft w/o s/s of hematoma. + neurovascular function of right leg. Pt maintains mask on for COVID 19 precautions being taken by wheel chair to awaiting car. Transfers w/o gross distress with discharge paperwork in hand.-cgf
--- NOTE | 2020-08-13 16:45 | NUR ---
Realization IV was not removed at time of discharge to right arm. PT contacted at [phone] and left message to return to facility for removal.-cgf
--- NOTE | 2020-08-13 18:15 | NUR ---
communicated with patients . situation explained and coordinating means to DC IV. 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 I already have my gloves on and about to remove it". discussed to treat site as an insect bite, and is aware of the s/s of complications. Hospital main number provided for need. follow up in the morning will be done.
== END | disposition home or self-care (01) ==
LOC: CATH LAB 11:39
PROVIDERS: ATTEND Internal Medicine Interventional Cardiology
DX: I25.708 Atherosclerosis of coronary artery bypass graft(s), unspecified, with other forms of angina pectoris (principal); R94.39 Abnormal result of other cardiovascular function study; I12.0 Hypertensive chronic kidney disease with stage 5 chronic kidney disease or end stage renal disease; N18.6 End stage renal disease; Z01.812 Encounter for preprocedural laboratory examination; Z11.59 Encounter for screening for other viral diseases; Z79.82 Long term (current) use of aspirin; Z95.1 Presence of aortocoronary bypass graft
CPT/HCPCS: 36415; 85025; 93459; C1760; J2001; J2250; J2930; J3010; J7030; Q9967; U0002; 99152; 99153

== ENCOUNTER 2021-11-27 02:43 | Emergency (ER) | payer MEDICARE ==
[~2021-11-27] VITALS: Ht 167.6 cm; Wt 51.3 kg
[~2021-11-27 02:43] MED LIST changes: -ALPRAZOLAM 0.5 MG TAB ONE; -DIPHENHYDRAMINE HCL 25 MG CAP ONE; -FAMOTIDINE 20 MG/2 ML VIAL IV ONE; -FENTANYL CITRATE/PF 100MCG/2 ML INJ ONE; -HEPARIN SOD/SOD CHLORIDE 2,000 ML ONE; -IOPAMIDOL 370 MG/ML 200 ML INFUS..BTL INJ ONE; -LIDOCAINE HCL 2% LOCAL 20 ML VIAL ONE; -METHYLPREDNISOLONE SOD SUCC 125 MG/2ML VIAL ONE; -MIDAZOLAM HCL 2 MG/2 ML VIAL ONE; -SODIUM CHLORIDE 0.9% 1000ML 1,000 ML ONE; -VERAPAMIL HCL 2.5 MG/ML 2 ML VIAL ONE
[2021-11-27] MEDS ORDERED: HYDROXYZINE HCL 50 MG/ML VIAL IM ONE (03:00)
[2021-11-27] MEDS ORDERED: HYDROXYZINE HCL 25 MG TAB PO ONE (03:00)
[2021-11-27] MEDS ORDERED: METHYLPREDNISOLONE SOD SUCC 125 MG/2ML VIAL IV ONE (03:00)
[2021-11-27 03:04] LABS: BASOPHILS % 0.5 % (0.0-1.0); EOSINOPHILS # (AUTO) 0.1 (0.0-0.4); EOSINOPHILS % 1.7 % (0.0-6.0); HEMATOCRIT 27.4 % (34.2-44.1); HEMOGLOBIN 8.6 g/dL (12.0-16.0); LYMPHOCYTES # (AUTO) 0.4 (1.0-3.2); LYMPHOCYTES % 10.2 % (18.0-39.1); MEAN CORPUSCULAR HEMOGLOBIN 30.6 pg (28-32); MEAN CORPUSCULAR HGB CONC 31.4 g/dL (31-35); MEAN CORPUSCULAR VOLUME 97.5 fL (81-99); MONOCYTES # (AUTO) 0.6 (0.2-0.8); MONOCYTES % 13.5 % (4.4-11.3); NEUTROPHILS # (AUTO) 3.1 (2.1-6.9); NEUTROPHILS % 73.4 % (38.7-80.0); PLATELET COUNT 90 x10e3/uL (140-360); RED BLOOD COUNT 2.81 x10e6/uL (3.6-5.1); RED CELL DISTRIBUTION WIDTH 20.2 % (11.7-14.4)
[2021-11-27 03:16] LABS: ANION GAP 18.5 mmol/L (8-16); CALCIUM 8.1 mg/dL (8.4-10.2); CREATININE, SERUM 2.36 mg/dL (0.57-1.11); POTASSIUM 3.5 mmol/L (3.5-5.1)
[2021-11-27 03:47] VITALS: BP 135/59
== END 2021-11-27 03:45 | disposition home or self-care (01) ==
LOC: ER 02:45
DX: L29.9 Pruritus, unspecified (principal); I12.0 Hypertensive chronic kidney disease with stage 5 chronic kidney disease or end stage renal disease; N18.6 End stage renal disease; Z99.2 Dependence on renal dialysis; I50.9 Heart failure, unspecified; M32.9 Systemic lupus erythematosus, unspecified
CPT/HCPCS: 36415; 80048; 85025; 99283; J2930; J3410; Q0177

== ENCOUNTER 2022-01-01 16:11 | Emergency (ER) | payer MEDICARE ==
[~2022-01-01] VITALS: Ht 167.6 cm; Wt 51.3 kg
[2022-01-01 19:10] LABS: BASOPHILS % 0.8 % (0.0-1.0); HEMOGLOBIN 11.5 g/dL (12.0-16.0); LYMPHOCYTES # (AUTO) 0.3 (1.0-3.2); LYMPHOCYTES % 6.4 % (18.0-39.1); MEAN CORPUSCULAR HEMOGLOBIN 30.6 pg (28-32); MEAN CORPUSCULAR HGB CONC 33.8 g/dL (31-35); MEAN CORPUSCULAR VOLUME 90.4 fL (81-99); MONOCYTES # (AUTO) 0.4 (0.2-0.8); MONOCYTES % 10.3 % (4.4-11.3); NEUTROPHILS # (AUTO) 3.2 (2.1-6.9); NEUTROPHILS % 80.7 % (38.7-80.0); PLATELET COUNT 101 x10e3/uL (140-360); RED BLOOD COUNT 3.76 x10e6/uL (3.6-5.1); RED CELL DISTRIBUTION WIDTH 16.5 % (11.7-14.4)
[2022-01-01 19:27] LABS: ALBUMIN 3.1 g/dL (3.5-5.0); ALBUMIN/GLOBULIN RATIO 0.9 (0.8-2.0); ANION GAP 16.2 mmol/L (8-16); CALCIUM 8.9 mg/dL (8.4-10.2); CREATININE, SERUM 3.07 mg/dL (0.57-1.11); POTASSIUM 3.2 mmol/L (3.5-5.1)
[2022-01-01 19:36] LABS: MAGNESIUM 1.6 MG/DL (1.3-2.1)
[2022-01-01 21:01] VITALS: BP 165/55
[2022-01-07] MEDS ORDERED: CALCITRIOL0.25 MCG PO (01:38)
== END 2022-01-01 21:02 | disposition home or self-care (01) ==
LOC: ER 16:15
DX: I48.20 Chronic atrial fibrillation, unspecified (principal); R60.9 Edema, unspecified; I12.0 Hypertensive chronic kidney disease with stage 5 chronic kidney disease or end stage renal disease; N18.6 End stage renal disease; Z99.2 Dependence on renal dialysis; I50.9 Heart failure, unspecified; M32.9 Systemic lupus erythematosus, unspecified; Z95.1 Presence of aortocoronary bypass graft
CPT/HCPCS: 36415; 71045; 80053; 83735; 83880; 84484; 85025; 93005; 99284; U0002

== ENCOUNTER → 2022-01-05 | Outpatient (CLI) | payer MEDICARE | LOC: CT 11:23 | PROVIDERS: ATTEND Family Medicine | DX: R10.0 Acute abdomen (principal) | CPT/HCPCS: 74176 ==

== ENCOUNTER 2022-01-06 09:08 | Inpatient (IN) | payer MEDICARE ==
[~2022-01-06] VITALS: Ht 165.1 cm; Wt 52.2 kg
[2022-01-06 09:51] LABS: BASOPHILS % 0.5 % (0.0-1.0); EOSINOPHILS % 0.7 % (0.0-6.0); HEMATOCRIT 29.5 % (34.2-44.1); HEMOGLOBIN 9.8 g/dL (12.0-16.0); LYMPHOCYTES # (AUTO) 0.4 (1.0-3.2); LYMPHOCYTES % 9.9 % (18.0-39.1); MEAN CORPUSCULAR HEMOGLOBIN 30.2 pg (28-32); MEAN CORPUSCULAR HGB CONC 33.2 g/dL (31-35); MONOCYTES # (AUTO) 0.4 (0.2-0.8); MONOCYTES % 8.9 % (4.4-11.3); NEUTROPHILS # (AUTO) 3.5 (2.1-6.9); NEUTROPHILS % 79.5 % (38.7-80.0); PLATELET COUNT 78 x10e3/uL (140-360); RED BLOOD COUNT 3.24 x10e6/uL (3.6-5.1); RED CELL DISTRIBUTION WIDTH 16.3 % (11.7-14.4)
[2022-01-06] MEDS ORDERED: ACETAMINOPHEN 1000 MG/100 ML IV STA (10:10)
[2022-01-06 10:22] LABS: INR 1.18
[2022-01-06 10:27] LABS: PARTIAL THROMBOPLASTIN TIME 37.5 seconds (23.8-35.5)
[2022-01-06 10:28] LABS: ALBUMIN 3.1 g/dL (3.5-5.0); CALCIUM 8.1 mg/dL (8.4-10.2); CREATININE, SERUM 3.69 mg/dL (0.57-1.11)
[2022-01-06 10:36] LABS: CREATINE KINASE MB 2.3 ng/mL (0-5.0)
[2022-01-06 10:50] LABS: B-TYPE NATRIURETIC PEPTIDE2 11566.7 pg/mL (0-100)
[2022-01-06] MEDS ORDERED: POTASSIUM CHLORIDE 20 MEQ TAB CR PO STA (10:59)
[2022-01-06] MEDS: ONDANSETRON HCL INJ 2MG/ML 2ML 2 MG/ML VIAL IV PRN ×2 (11:14→16:50)
[2022-01-06] MEDS: Morphine 2mg Syringe 2 MG/ML SYR IV PRN ×2 (11:29→16:50)
[2022-01-06] MEDS ORDERED: DEXTROSE 50% SYRINGE 50 ML IV ONE (11:30)
[2022-01-06 12:20] VITALS: BP 113/52
[2022-01-06 13:26] VITALS: BP 113/52
[2022-01-06 16:17] VITALS: BP 104/48
[2022-01-06] MEDS: ACETAMINOPHEN 1000 MG/100 ML IV SCH (19:16)
[2022-01-06 20:00] VITALS: BP 97/51
[2022-01-06] MEDS: HYDRALAZINE HCL 25 MG TAB PO SCH (21:00)
[2022-01-06 22:00] VITALS: BP 97/51
[2022-01-06] MEDS: HYDROXYZINE HCL 10 MG TAB PO PRN (22:10)
[2022-01-07] VITALS (8 sets, daily range): BP systolic 102–127; BP diastolic 57–89
[2022-01-07] MEDS ORDERED: HYDROXYZINE HCL 10 MG TAB PO ONE (00:15)
[2022-01-07] MEDS: ACETAMINOPHEN 1000 MG/100 ML IV SCH ×3 (00:30→12:00)
[2022-01-07] MEDS ORDERED: CALCITRIOL0.25 MCG PO ×3 (01:38→06:46)
[2022-01-07] MEDS: LORATADINE 10 MG TAB PO SCH ×2 (03:59→04:00)
[2022-01-07] MEDS: Morphine 2mg Syringe 2 MG/ML SYR IV PRN ×2 (04:23→22:24)
[2022-01-07 06:14] LABS: BASOPHILS % 1.1 % (0.0-1.0); EOSINOPHILS % 1.1 % (0.0-6.0); HEMATOCRIT 27.6 % (34.2-44.1); HEMOGLOBIN 9.1 g/dL (12.0-16.0); LYMPHOCYTES # (AUTO) 0.3 (1.0-3.2); LYMPHOCYTES % 9.6 % (18.0-39.1); MEAN CORPUSCULAR HEMOGLOBIN 30.6 pg (28-32); MEAN CORPUSCULAR VOLUME 92.9 fL (81-99); MONOCYTES # (AUTO) 0.5 (0.2-0.8); MONOCYTES % 12.6 % (4.4-11.3); NEUTROPHILS # (AUTO) 2.7 (2.1-6.9); PLATELET COUNT 73 x10e3/uL (140-360); RED BLOOD COUNT 2.97 x10e6/uL (3.6-5.1); RED CELL DISTRIBUTION WIDTH 16.9 % (11.7-14.4)
[2022-01-07 06:35] LABS: INR 1.19; PROTHROMBIN TIME 16.1 seconds (11.9-14.5)
[2022-01-07 06:47] LABS: ALBUMIN 2.8 g/dL (3.5-5.0); ANION GAP 16.5 mmol/L (8-16); CALCIUM 7.7 mg/dL (8.4-10.2); CREATININE, SERUM 4.59 mg/dL (0.57-1.11); POTASSIUM 3.5 mmol/L (3.5-5.1)
[2022-01-07] MEDS: HYDRALAZINE HCL 25 MG TAB PO SCH ×3 (08:50→20:47)
[2022-01-07] MEDS: METOPROLOL TARTRATE 50 MG TAB PO SCH ×2 (08:51→17:13)
[2022-01-07] MEDS: ASPIRIN 81 MG ENTERIC COATED PO SCH ×2 (08:51→08:52)
[2022-01-07] MEDS: PRAVASTATIN 20 MG TAB PO SCH (08:52)
[2022-01-07] MEDS: CHOLECALCIFEROL 1,000 UNIT TAB PO SCH (08:53)
[2022-01-07] MEDS: PANTOPRAZOLE SOD 40 MG TABEC PO SCH (08:53)
[2022-01-07] MEDS: PREN/MULTIVIT/MIN/FOL AC/IRON 1 TAB PO SCH (08:53)
[2022-01-07] MEDS: CALCITRIOL 0.25 MCG CAP PO SCH (08:53)
[2022-01-07] MEDS: CINACALCET 30 MG TAB PO SCH (08:53)
[2022-01-07] MEDS ORDERED: LOSARTAN POTASSIUM 100 MG TAB PO SCH (09:00)
[2022-01-07] MEDS ORDERED: AMLODIPINE BESYLATE 10 MG TAB PO SCH (09:00)
[2022-01-07] MEDS: HYDROXYZINE HCL 10 MG TAB PO PRN ×2 (13:27→20:46)
[2022-01-07] MEDS ORDERED: SODIUM CHLORIDE 0.9% 500ML 500 ML ONE (14:22)
[2022-01-07] MEDS: SUCRALFATE 1 GM TAB PO SCH ×2 (17:13→20:46)
[2022-01-07] MEDS ORDERED: POVIDONE IODINE 0.05% 0.05 % ML PO ONE (17:20)
[2022-01-07] MEDS ORDERED: PROPOFOL IV EMULSION 10 MG/ML 20 ML VIAL ONE (17:20)
[2022-01-07] MEDS ORDERED: LIDOCAINE HCL 2% LOCAL INJ 5 ML SDV VIAL INJ ONE (17:20)
[2022-01-07] MEDS ORDERED: SODIUM CHLORIDE 0.9% 1000ML 1,000 ML ONE (17:58)
[2022-01-08] VITALS (7 sets, daily range): BP systolic 94–114; BP diastolic 43–63
[2022-01-08] MEDS: HYDROXYZINE HCL 10 MG TAB PO PRN ×2 (03:54→17:05)
[2022-01-08] MEDS: ONDANSETRON HCL INJ 2MG/ML 2ML 2 MG/ML VIAL IV PRN ×3 (08:27→23:43)
[2022-01-08] MEDS: HYDRALAZINE HCL 25 MG TAB PO SCH ×3 (09:00→21:00)
[2022-01-08] MEDS: PREN/MULTIVIT/MIN/FOL AC/IRON 1 TAB PO SCH (09:00)
[2022-01-08] MEDS: SUCRALFATE 1 GM TAB PO SCH ×4 (09:27→21:16)
[2022-01-08] MEDS: LORATADINE 10 MG TAB PO SCH (09:28)
[2022-01-08] MEDS: METOPROLOL TARTRATE 50 MG TAB PO SCH ×2 (09:28→16:59)
[2022-01-08] MEDS: ASPIRIN 81 MG ENTERIC COATED PO SCH (09:28)
[2022-01-08] MEDS: PRAVASTATIN 20 MG TAB PO SCH (09:28)
[2022-01-08] MEDS: CALCITRIOL 0.25 MCG CAP PO SCH (09:29)
[2022-01-08] MEDS: CINACALCET 30 MG TAB PO SCH (09:29)
[2022-01-08] MEDS: PANTOPRAZOLE SOD 40 MG TABEC PO SCH (09:29)
[2022-01-08] MEDS: CHOLECALCIFEROL 1,000 UNIT TAB PO SCH (09:29)
[2022-01-08] MEDS: Morphine 2mg Syringe 2 MG/ML SYR IV PRN (09:32)
[2022-01-08] MEDS ORDERED: METOCLOPRAMIDE HCL 10 MG/2ML VIAL IV ONE (16:45)
[2022-01-08] MEDS ORDERED: DIPHENHYDRAMINE HCL 25 MG CAP PO ONE (22:15)
[2022-01-09] VITALS (8 sets, daily range): BP systolic 90–109; BP diastolic 42–59
[2022-01-09] MEDS: PRAVASTATIN 20 MG TAB PO SCH (08:46)
[2022-01-09] MEDS: LORATADINE 10 MG TAB PO SCH (08:46)
[2022-01-09] MEDS: PREN/MULTIVIT/MIN/FOL AC/IRON 1 TAB PO SCH (08:48)
[2022-01-09] MEDS: SUCRALFATE 1 GM TAB PO SCH ×4 (08:48→21:32)
[2022-01-09] MEDS: ASPIRIN 81 MG ENTERIC COATED PO SCH (09:00)
[2022-01-09] MEDS ORDERED: SODIUM CHLORIDE 0.9% 1000ML 2,000 ML ONE (09:22)
[2022-01-09 09:25] LABS: BASOPHILS % 0.5 % (0.0-1.0); EOSINOPHILS % 0.7 % (0.0-6.0); HEMATOCRIT 31.1 % (34.2-44.1); HEMOGLOBIN 9.9 g/dL (12.0-16.0); LYMPHOCYTES # (AUTO) 0.7 (1.0-3.2); MEAN CORPUSCULAR HEMOGLOBIN 29.8 pg (28-32); MEAN CORPUSCULAR HGB CONC 31.8 g/dL (31-35); MEAN CORPUSCULAR VOLUME 93.7 fL (81-99); MONOCYTES # (AUTO) 0.5 (0.2-0.8); NEUTROPHILS # (AUTO) 3.1 (2.1-6.9); NEUTROPHILS % 71.3 % (38.7-80.0); PLATELET COUNT 85 x10e3/uL (140-360); RED BLOOD COUNT 3.32 x10e6/uL (3.6-5.1); RED CELL DISTRIBUTION WIDTH 16.5 % (11.7-14.4)
[2022-01-09 09:42] LABS: ALBUMIN 2.8 g/dL (3.5-5.0); ANION GAP 19.2 mmol/L (8-16); CALCIUM 7.8 mg/dL (8.4-10.2); CREATININE, SERUM 6.24 mg/dL (0.57-1.11); POTASSIUM 4.2 mmol/L (3.5-5.1)
[2022-01-09] MEDS ORDERED: MIDODRINE HCL 5 MG TABLET PO ONE (10:15)
[2022-01-09] MEDS: CHOLECALCIFEROL 1,000 UNIT TAB PO SCH (16:54)
[2022-01-09] MEDS: CINACALCET 30 MG TAB PO SCH (16:54)
[2022-01-09] MEDS: PANTOPRAZOLE SOD 40 MG TABEC PO SCH (16:54)
[2022-01-09] MEDS: CALCITRIOL 0.25 MCG CAP PO SCH (16:54)
[2022-01-10 00:32] VITALS: BP 100/56
[2022-01-10 05:47] VITALS: BP 110/56
[2022-01-10] MEDS: SUCRALFATE 1 GM TAB PO SCH (07:30)
[2022-01-10 08:26] VITALS: BP 117/47
[2022-01-10 08:57] VITALS: BP 117/47
[2022-01-10] MEDS: PREN/MULTIVIT/MIN/FOL AC/IRON 1 TAB PO SCH (08:58)
[2022-01-10] MEDS: CHOLECALCIFEROL 1,000 UNIT TAB PO SCH (08:58)
[2022-01-10] MEDS: PANTOPRAZOLE SOD 40 MG TABEC PO SCH (08:58)
[2022-01-10] MEDS: ASPIRIN 81 MG ENTERIC COATED PO SCH (08:58)
[2022-01-10] MEDS: CINACALCET 30 MG TAB PO SCH (08:58)
[2022-01-10] MEDS: PRAVASTATIN 20 MG TAB PO SCH (08:58)
[2022-01-10] MEDS: CALCITRIOL 0.25 MCG CAP PO SCH (08:58)
[2022-01-10] MEDS: LORATADINE 10 MG TAB PO SCH (08:58)
== END 2022-01-10 10:48 | disposition home or self-care (01) | DRG 377 ==
LOC: ER 09:18 → ERHOLD 11:05 → MED/SURG3 12:04
PROVIDERS: ADMIT Family Medicine; ATTEND Family Medicine
PROC: 0W3P8ZZ Control Bleeding in Gastrointestinal Tract, Via Natural or Artificial Opening Endoscopic (ICD-10-PCS; 2022-01-06)
PROC: 5A1D70Z Performance of Urinary Filtration, Intermittent, Less than 6 Hours Per Day (ICD-10-PCS; principal; 2022-01-09)
DX: K26.0 Acute duodenal ulcer with hemorrhage (principal); K25.0 Acute gastric ulcer with hemorrhage; I50.23 Acute on chronic systolic (congestive) heart failure; N18.6 End stage renal disease; I13.2 Hypertensive heart and chronic kidney disease with heart failure and with stage 5 chronic kidney disease, or end stage renal disease; N25.81 Secondary hyperparathyroidism of renal origin; Z68.1 Body mass index [BMI] 19.9 or less, adult; R04.2 Hemoptysis; E11.22 Type 2 diabetes mellitus with diabetic chronic kidney disease; Z99.2 Dependence on renal dialysis; Z79.899 Other long term (current) drug therapy; I25.10 Atherosclerotic heart disease of native coronary artery without angina pectoris; Z88.0 Allergy status to penicillin; Z88.2 Allergy status to sulfonamides; K21.9 Gastro-esophageal reflux disease without esophagitis; I48.91 Unspecified atrial fibrillation; Z79.01 Long term (current) use of anticoagulants; Z95.1 Presence of aortocoronary bypass graft; I27.20 Pulmonary hypertension, unspecified; E78.5 Hyperlipidemia, unspecified; Z20.822 Contact with and (suspected) exposure to COVID-19; D64.9 Anemia, unspecified; E87.8 Other disorders of electrolyte and fluid balance, not elsewhere classified; L29.9 Pruritus, unspecified; R62.7 Adult failure to thrive; K31.89 Other diseases of stomach and duodenum; D63.8 Anemia in other chronic diseases classified elsewhere; M81.0 Age-related osteoporosis without current pathological fracture; D89.89 Other specified disorders involving the immune mechanism, not elsewhere classified
CPT/HCPCS: 36415; 43239; 70450; 71045; 74018; 80053; 82105; 82378; 82550; 82553; 82948; 83605; 83880; 84484; 85025; 85610; 85651; 85730; 86021; 86039; 86705; 86706; 87040; 87340; 93005; 93041; 93306; 99284; J2001; J2270; J2405; J2765; J3410; J7030; J7040; J7799; U0002

== ENCOUNTER 2022-03-06 18:49 | Emergency (ER) | payer MEDICARE ==
[~2022-03-06] VITALS: Ht 165.1 cm; Wt 52.2 kg
[2022-03-06] MEDS ORDERED: ONDANSETRON HCL INJ 2MG/ML 2ML 2 MG/ML VIAL IV STA (19:40)
[2022-03-06 20:04] LABS: BASOPHILS % 0.2 % (0.0-1.0); EOSINOPHILS % 0.2 % (0.0-6.0); HEMATOCRIT 26.3 % (34.2-44.1); HEMOGLOBIN 8.2 g/dL (12.0-16.0); LYMPHOCYTES # (AUTO) 0.8 (1.0-3.2); LYMPHOCYTES % 13.5 % (18.0-39.1); MEAN CORPUSCULAR HEMOGLOBIN 30.5 pg (28-32); MEAN CORPUSCULAR HGB CONC 31.2 g/dL (31-35); MEAN CORPUSCULAR VOLUME 97.8 fL (81-99); MONOCYTES # (AUTO) 0.7 (0.2-0.8); MONOCYTES % 12.9 % (4.4-11.3); NEUTROPHILS # (AUTO) 4.1 (2.1-6.9); NEUTROPHILS % 72.8 % (38.7-80.0); PLATELET COUNT 155 x10e3/uL (140-360); RED BLOOD COUNT 2.69 x10e6/uL (3.6-5.1); RED CELL DISTRIBUTION WIDTH 19.8 % (11.7-14.4)
[2022-03-06 20:15] LABS: AMYLASE 131 U/L (25-125); LIPASE 76 U/L (8-78)
[2022-03-06 20:23] LABS: ALBUMIN 3.4 g/dL (3.5-5.0); ALBUMIN/GLOBULIN RATIO 0.9 (0.8-2.0); CALCIUM 10.5 mg/dL (8.4-10.2); CREATININE, SERUM 3.95 mg/dL (0.57-1.11)
[2022-03-06 20:30] LABS: CREATINE KINASE MB 2.4 ng/mL (0-5.0)
[2022-03-06] MEDS ORDERED: HYDROXYZINE HCL 25 MG TAB PO SCH (21:15)
[2022-03-06 22:10] VITALS: BP 131/74
== END 2022-03-06 22:04 | disposition home or self-care (01) ==
LOC: ER 19:04
DX: R10.13 Epigastric pain (principal); K82.8 Other specified diseases of gallbladder; R18.8 Other ascites; I12.9 Hypertensive chronic kidney disease with stage 1 through stage 4 chronic kidney disease, or unspecified chronic kidney disease; N18.9 Chronic kidney disease, unspecified; Z99.2 Dependence on renal dialysis; I50.9 Heart failure, unspecified; M32.9 Systemic lupus erythematosus, unspecified; I51.7 Cardiomegaly
CPT/HCPCS: 36415; 74176; 80053; 82150; 82550; 82553; 83690; 84484; 85025; 93005; 99284; C9113; J2405; J3410